=== PATIENT | female | born 1965 | race Caucasian/White ===

== ENCOUNTER 2017-11-19 09:38 | Outpatient (CLI) | payer BC ==
[2017-11-19 10:26] LABS: Mean Corpuscular Hemoglobin 31.5 pg (27.0-31.0); Mean Platelet Volume 6.9 fL (7.4-10.4); Platelet Count 346 thou/uL (130-400); RBC Distribution Width 11.2 % (11.5-14.5); Red Blood Cell (RBC) Count 4.45 mill/uL (4.20-5.40)
[2017-11-19 10:33] LABS: Prothrombin Time 13.6 SEC (12.0-14.7)
[2017-11-19 10:34] LABS: PTT 34.6 SEC (22.9-36.1)
[2017-11-19 11:26] LABS: ALT (SGPT) 25 U/L (8-55); AST (SGOT) 19 U/L (5-34); Albumin 4.8 g/dL (3.5-5.0); Alkaline Phosphatase 75 U/L (40-150); Anion Gap 14 mmol/L (10-20); BUN (Urea Nitrogen) 12 mg/dL (7.0-18.7); Calc. Creatinine Clearance 0 mL/min (70-130); Calcium 10.2 mg/dL (7.8-10.44); Carbon Dioxide 27 mmol/L (22-29); Chloride 103 mmol/L (98-107); Estimated GFR-MDRD 72; Globulin 3.1 g/dL (2.4-3.5); Glucose 108 mg/dL (70-105); Potassium 4.5 mmol/L (3.5-5.1); Protein, Total 7.9 g/dL (6.0-8.3); Sodium 139 mmol/L (136-145)
== END 2017-11-19 09:39 | disposition home or self-care (01) ==
LOC: LABBT 09:38
PROVIDERS: ATTEND Internal Medicine Cardiovascular Disease
DX: Z01.818 Encounter for other preprocedural examination (principal); R94.39 Abnormal result of other cardiovascular function study
CPT/HCPCS: 80053; 85027; 85610; 85730

== ENCOUNTER 2018-04-14 14:33 | Outpatient (CLI) | payer BC ==
[2018-04-14 15:57] LABS: Hemoglobin 13.8 g/dL (12.0-16.0); Mean Corpuscular HGB CONC 35.1 g/dL (32.0-36.0); Mean Corpuscular Hemoglobin 31.1 pg (27.0-31.0); Mean Corpuscular Volume 88.5 fL (78.0-98.0); Mean Platelet Volume 6.4 fL (7.4-10.4); Platelet Count 318 thou/uL (130-400); RBC Distribution Width 11.4 % (11.5-14.5); Red Blood Cell (RBC) Count 4.43 mill/uL (4.20-5.40); White Blood Cell (WBC) Count 7.5 thou/uL (4.8-10.8)
[2018-04-14 16:13] LABS: PTT 30.1 SEC (22.9-36.1); Prothrombin Time 13.3 SEC (12.0-14.7)
[2018-04-14 16:19] LABS: ALT (SGPT) 33 U/L (8-55); AST (SGOT) 22 U/L (5-34); Albumin 4.5 g/dL (3.5-5.0); Alkaline Phosphatase 87 U/L (40-150); Anion Gap 13 mmol/L (10-20); BUN (Urea Nitrogen) 8 mg/dL (9.8-20.1); Bilirubin, Total 0.7 mg/dL (0.2-1.2); Calc. Creatinine Clearance 0 mL/min (70-130); Calcium 9.7 mg/dL (7.8-10.44); Carbon Dioxide 26 mmol/L (22-29); Chloride 102 mmol/L (98-107); Estimated GFR-MDRD 76; Glucose 88 mg/dL (70-105); Potassium 3.8 mmol/L (3.5-5.1); Protein, Total 7.5 g/dL (6.0-8.3); Sodium 137 mmol/L (136-145)
== END 2018-04-14 14:34 | disposition home or self-care (01) ==
LOC: LABBT 14:33
PROVIDERS: ATTEND Internal Medicine Cardiovascular Disease
DX: Z01.812 Encounter for preprocedural laboratory examination (principal); R94.39 Abnormal result of other cardiovascular function study
CPT/HCPCS: 80053; 85027; 85610; 85730

== ENCOUNTER → 2018-04-22 | Day surgery (SDC) | payer BC ==
[2018-04-14 15:04] VITALS: BMI 39.2
[~2018-04-22] MED LIST: Diazepam 5 MG TAB ONE; Fentanyl 100 MCG/2 ML VIAL ONE; Heparin 0 ML ONE; Iopamidol 370 76% 100 ML VIAL ONE; Lidocaine 1% (PF) 30 ML VIAL ONE; Midazolam HCl 2 mg/2 ml Vial ONE; Nitroglycerin 100MG/250ML BOT 250 ML ONE
--- NOTE | 2018-04-22 13:32 | DIS ---
Ms. Tilley underwent cardiac catheterization today that reveals normal coronary arteries. In talki ng to her further, I think her symptoms are likely esophageal reflux. I asked her to take the Zantac twice a day. Other medicines unchanged. She will see us in 6-8 weeks. She does not have any evide nce of heart disease other than hypertension.
== END ==
LOC: CCL 06:21
PROVIDERS: ATTEND Internal Medicine Cardiovascular Disease
DX: R94.39 Abnormal result of other cardiovascular function study (principal); R07.9 Chest pain, unspecified; I10 Essential (primary) hypertension; Z88.0 Allergy status to penicillin
CPT/HCPCS: 76942; 93458; 99152; 99153; C1769; J1644; J2001; J2250; J3010

== ENCOUNTER 2024-04-22 13:30 | Outpatient (CLI) | payer BC | END 2024-04-22 13:31 | disposition home or self-care (01) | LOC: BICULT 13:30 | PROVIDERS: ATTEND Family Medicine | DX: M67.432 Ganglion, left wrist (principal); M12.532 Traumatic arthropathy, left wrist | CPT/HCPCS: 76999 ==